=== PATIENT | male | born 1995 | race Asian ===

== ENCOUNTER 2018-03-10 09:37 | Emergency (ER) | payer OTHER ==
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
[2018-03-10] MEDS ORDERED: ACETAMINOPHEN 325 MG TAB PO ONE (11:23)
[2018-03-10 11:53] VITALS: BP 113/74
== END 2018-03-10 11:42 | disposition home or self-care (01) ==
LOC: EDBD 09:37
DX: S06.0X1A Concussion with loss of consciousness of 30 minutes or less, initial encounter (principal); V11.0XXA Pedal cycle driver injured in collision with other pedal cycle in nontraffic accident, initial encounter; Y92.482 Bike path as the place of occurrence of the external cause; Y99.8 Other external cause status; Y93.55 Activity, bike riding